=== PATIENT | female | born 1990 | race Two or more races ===

== ENCOUNTER 2017-05-18 11:03 | Inpatient (IN) ==
[2017-05-18] MEDS ORDERED: hydrOXYzine HCL 25 MG/1 ML VIAL IM PRN (11:37)
[2017-05-18] MEDS ORDERED: LACTATED RINGERS 1,000 ML IV PRN (11:37)
[2017-05-18] MEDS ORDERED: PROMETHAZINE 25 MG/1 ML VIAL IM ONE (11:37)
[2017-05-18] MEDS ORDERED: diphenhydrAMINE 50 MG/1 ML VIAL IV PRN ×2 (11:37)
[2017-05-18] MEDS ORDERED: FAMOTIDINE 20 MG/2 ML VIAL IV ONE (11:37)
[2017-05-18] MEDS ORDERED: LACTATED RINGERS 1,000 ML IV ONE (11:37)
[2017-05-18] MEDS ORDERED: LACTATED RINGERS 500 ML IV ONE (11:37)
[2017-05-18] MEDS ORDERED: CITRIC ACID/SODIUM CITRATE 30 ML UDCUP PO ONE (11:37)
[2017-05-18] MEDS ORDERED: ONDANSETRON 4 MG/2 ML VIAL IV ONE (11:37)
[2017-05-18] MEDS ORDERED: ePHEDrine 50 MG/ML AMP IV PRN (11:37)
[2017-05-18] MEDS ORDERED: ONDANSETRON 4 MG/2 ML VIAL IV PRN (11:38)
[2017-05-18] MEDS ORDERED: BUTORPHANOL 2 MG/ML VIAL IV PRN (11:38)
[2017-05-18] MEDS ORDERED: OXYTOCIN/LR 20 UNIT/1,000 ML BAG IV ONE ×3 (11:58→13:42)
[2017-05-18] MEDS ORDERED: LACTATED RINGERS 1,000 ML IV SCH ×2 (12:00)
[2017-05-18] MEDS ORDERED: fentaNYL 2 MCG/ROPIV 0.2% EPID 150 ML EPIDURAL SCH (12:00)
[2017-05-18 12:21] LABS: Basophils % 0.3 % (0.0-0.8); Eosinophils % 0.1 % (0.00-10.9); Hemoglobin 9.1 GM/DL (12.0-16.0); Immature Granulocytes % 1.7 %; Immature Granulocytes Absolute 0.18 #; Lymphocytes # 1.2 10*3/uL (1.4-4.0); Lymphocytes % 11.6 % (21.3-54.2); Mean Corpuscular HGB Conc 31.4 GM/DL (32-36); Mean Corpuscular Hemoglobin 26 PG (27-34); Mean Corpuscular Volume 82.6 FL (87-102); Mean Platelet Volume 9.7 FL (9.6-12.0); Monocytes # 0.6 10*3/uL (0.11-0.8); Monocytes % 5.7 % (1.7-12.7); Neutrophils # 8.5 10*3/uL (1.4-7.4); Neutrophils % 80.6 % (38.7-73.9); Platelet Count 400 T/CUMM (130-400); Red Blood Count 3.51 MC/CUMM (3.8-5.5); Red Cell Distribution Width 15.3 % (9.3-17.3); White Blood Count 10.6 T/CUMM (4-12)
[2017-05-18 12:47] LABS: Albumin 2.9 G/DL (3.4-5.0); Bilirubin,Total 0.4 MG/DL (0.2-1.0); Calcium 8.7 MG/DL (8.5-10.1); Osmolality,Calculated 273.7 MOS/KG (273-304); Potassium 4.4 MMOL/L (3.5-5.1); Total Protein 6.7 G/DL (6.4-8.3)
[2017-05-18] MEDS ORDERED: OXYTOCIN/LR 20 UNIT/1,000 ML BAG IV SCH (13:30)
[2017-05-18 13:55] LABS: Apearance,Urine Slightly Hazy (Clear); Bacteria,Urine Moderate /HPF (Few); Bilirubin,Urine Negative (Negative); Blood, Urine Moderate mg/dL (Negative); Glucose,Urine (UA) Negative (Negative); Ketones,Urine Negative (Negative); Mucus,Urine Occasional /LPF (Occasional); Nitrite,Urine Negative (Negative); Protein,Urine Negative; RBC,Urine 4 /HPF (0-4); Squamous Epithelial Cell,Urine Few /HPF (0-10); Urine Color Yellow (Yellow); Urine Specific Gravity 1.017 (1.001-1.035); Urine Urobilinogen < 2.0 EU/DL (0.2-1.0); WBC,Urine 21 /HPF (0-6)
[2017-05-18] MEDS ORDERED: LIDOCAINE 1% 50 ML VIAL ONE (14:22)
[2017-05-18] MEDS ORDERED: DIPH/TET/ACEL PERT BOOSTER VACCINE 0.5 ML VIAL IM ONE (18:04)
[2017-05-18] MEDS ORDERED: LANOLIN 50% CREAM 0.3 OZ TUBE TOP PRN (18:04)
[2017-05-18] MEDS ORDERED: BENZOCAINE 20%/MENTHOL 0.5% SPRAY 56 GM CAN TOP PRN (18:04)
[2017-05-18] MEDS ORDERED: MEASLES/MUMPS/RUBELLA VACCINE 0.5 ML VIAL SUBCUT ONE (18:04)
[2017-05-18] MEDS ORDERED: HYDROCORTISONE 2.5% RECTAL CREAM 30 GM TUBE TOP PRN (18:04)
[2017-05-18] MEDS ORDERED: ACETAMINOPHEN 325 MG TABLET PO SCH (18:04)
[2017-05-18] MEDS ORDERED: BISACODYL 10 MG SUPP RECTAL PRN (18:04)
[2017-05-18] MEDS ORDERED: RHO(D) IMMUNE GLOBULIN 300 MCG SYRINGE IM ONE (18:04)
[2017-05-18] MEDS ORDERED: WITCH HAZEL PADS 100/JAR TOP PRN (18:04)
[2017-05-18] MEDS ORDERED: INFLUENZA VIRUS VACCINE 0.5 ML SYRINGE IM ONE (19:05)
[2017-05-18] MEDS: DOCUSATE SODIUM 100 MG CAPSULE PO SCH (22:07)
[2017-05-19 04:09] LABS: Basophils % 0.3 % (0.0-0.8); Eosinophils # 0.1 10*3/uL (0.0-0.87); Eosinophils % 0.5 % (0.00-10.9); Hemoglobin 8.5 GM/DL (12.0-16.0); Immature Granulocytes % 0.4 %; Immature Granulocytes Absolute 0.05 #; Lymphocytes # 2.2 10*3/uL (1.4-4.0); Lymphocytes % 19.4 % (21.3-54.2); Mean Corpuscular HGB Conc 31.5 GM/DL (32-36); Mean Corpuscular Hemoglobin 27 PG (27-34); Mean Corpuscular Volume 84.1 FL (87-102); Mean Platelet Volume 10.2 FL (9.6-12.0); Monocytes # 0.7 10*3/uL (0.11-0.8); Monocytes % 6.1 % (1.7-12.7); Neutrophils # 8.5 10*3/uL (1.4-7.4); Neutrophils % 73.3 % (38.7-73.9); Platelet Count 344 T/CUMM (130-400); Red Blood Count 3.21 MC/CUMM (3.8-5.5); Red Cell Distribution Width 15.2 % (9.3-17.3); White Blood Count 11.6 T/CUMM (4-12)
[2017-05-19] MEDS: IBUPROFEN 800 MG TABLET PO SCH ×3 (06:31→13:26)
[2017-05-19] MEDS: DOCUSATE SODIUM 100 MG CAPSULE PO SCH (08:24)
[2017-05-19 11:24] VITALS: BP 115/53
== END 2017-05-19 15:30 | disposition home or self-care (01) | DRG 775 ==
LOC: N.LDOUT 11:03 → N.LD 11:10 → N.OB 17:57
PROVIDERS: ADMIT Obstetrics & Gynecology; ATTEND Obstetrics & Gynecology